=== PATIENT | female | born 1960 | race Caucasian/White ===

== ENCOUNTER 2019-11-20 08:06 | Outpatient (CLI) | payer OTHER, SELFPAY ==
--- NOTE | ~2019-11-20 | DEXA_ITS ---
BMD(1) Young-Adult(2) Age-Matched(3) Region (g/cm2) T-score Z-score WHO Classification L1 0.884 -2.1 -1.1 Osteopenia L2 0.921 -2.4 -1.4 Osteopenia L3 0.951 -2.1 -1.1 Osteopenia L4 0.967 -2.0 -1.0 Osteopenia L1-L4 0.936 -2.1 -1.1 Osteopenia Trend: L1-L4 Change vs Change vs Measured Age BMD(1) Baseline Previous Date (years) (g/cm2) (%) (%) 11/20/2019 58.9 0.936 1.8 1.8 12/20/2017 [age] 0.919 baseline - 1 - Statistically 68% of repeat scans fall within 1SD (+- 0.010 g/cm2 for AP Spine L1-L4) 2 - [place] (Combined NHANES (ages 20-30) / [employer] (ages 20-40)) AP Spine Reference Population (v112) 3 - Matched for Age, Weight (females 25-100 kg), Ethnic 11 - World Health Organization - Definition of Osteoporosis and Osteopenia for Women: Normal = T-score at or above -1.0 SD; Osteopenia = T-score between -1.0 and -2.5 SD; Osteoporosis = T-score at or below -2.5 SD; (WHO definitions only apply when a young healthy Women reference database is used to determine T-scores.) Printed: 11/20/2019 9:11:20 AM (13.60)76:3.00:50.00:12.0 0.00:10.32 0.60x1.05 21.5:%Fat=42.2% 0.00:0.00 0.00:0.00 Filename: [id number] Scan Mode: Standard;OneScan 37.0 W[employer] [id number] BMD(1) Young-Adult(2,7) Age-Matched(3) Region (g/cm2) T-score Z-score WHO Classification Neck Left 0.799 -1.7 -0.6 Osteopenia Right 0.767 -1.9 -0.8 Osteopenia Mean 0.783 -1.8 -0.7 Osteopenia Difference 0.032 -0.2 -0.2 - Total Left 0.882 -1.0 -0.2 Normal Right 0.861 -1.2 -0.4 Osteopenia Mean 0.872 -1.1 -0.3 Osteopenia Difference 0.021 -0.2 -0.2 - Hip [place] Length Comparison (mm) (Right = 104.3 mm) (Mean = 103.2 mm) (Left = 99.3 mm) Trend: Total Mean Change vs Change vs Measured Age BMD(1) Baseline Previous Date (years) (g/cm2) (%) (%) 11/20/2019 58.9 0.872 baseline - 1 - Statistically 68% of repeat scans fall within 1SD (+- 0.010 g/cm2 for DualFemur Total) 2 - [place] (Combined NHANES (ages 20-30) / [employer] (ages 20-40)) Femur Reference Population (v112) 3 - Matched for Age, Weight (females 25-100 kg), Ethnic 7 - [employer] Total T-score difference is 0.2. Asymmetry is None. 11 - World Health Organization - Definition of Osteoporosis and Osteopenia for Women: Normal = T-score at or above -1.0 SD; Osteopenia = T-score between -1.0 and -2.5 SD; Osteoporosis = T-score at or below -2.5 SD; (WHO definitions only apply when a young healthy Women reference database is used to determine T-scores.) Printed: 11/20/2019 9:11:20 AM (13.60); Filename: [id number]; Right Femur; 16.9:%Fat=32.4%; Neck Angle (deg)= 58; Scan Mode: Standard 37.0 uGy; Left Femur; 16.2:%Fat=33.1%; Neck Angle (deg)= 60; Scan Mode: Thin 9.0 uGy brick&mobile [id number] Dear Glenn Johnson, Your patient Lucy Faust completed a BMD test on 11/20/2019 using the brick&mobile DXA System (analysis version: 13.60) manufactured by [employer]. The following summarizes the results of our evaluation. PATIENT BIOGRAPHICAL: Name: Lucy Faust Date: 1960 Height: 62.0 in.
== END 2019-11-20 08:07 | disposition home or self-care (01) ==
PROVIDERS: PCP Internal Medicine; Visit Provider Internal Medicine
DX: M81.0 Age-related osteoporosis without current pathological fracture (principal)
CPT/HCPCS: 77080

== ENCOUNTER → 2020-09-22 10:19 | Outpatient (CLI) | payer OTHER, SELFPAY ==
--- NOTE | ~2020-09-22 | MM_ITS ---
EXAMINATION: MM screening kristina BI w steffany HISTORY: Screening mammogram TECHNIQUE: Craniocaudal and mediolateral oblique 3-D tomosynthesis images were obtained and synthetic 2-D images were generated. CAD analysis was submitted and interpreted. COMPARISON: 04/20/2019, 08/01/2017, 03/29/2016 lateral digital screening mammogram examinations BREAST PARENCHYMAL COMPOSITION: There are scattered areas of fibroglandular density. FINDINGS: A 4 mm and a 5 mm low-density circumscribed masses are noted in the mid and upper outer rig ht breast. A similar low-density circumscribed 3.8 mm mass is noted posteriorly in the mid outer righ t breast. There is a likely benign intramammary lymph nodes. These are stable since 03/29/2016 and 04/02. There is no evidence of suspicious mass, calcification, or architectural distortion to suggest malign jessica in either breast. There has been no suspicious interval change. IMPRESSION: 1. No mammographic evidence of malignancy. 2. Recommend routine screening mammography in one year. BI-RADS Category 2: Benign finding(s). Reviewed, dictated and finalized at location A. INUING EDUCATION INSTRUCTOR
== END ==
PROVIDERS: PCP Internal Medicine; Visit Provider Obstetrics & Gynecology
DX: Z12.31 Encounter for screening mammogram for malignant neoplasm of breast (principal)
CPT/HCPCS: 77063; 77067

== ENCOUNTER 2020-10-11 10:15 | Outpatient (CLI) | payer OTHER, SELFPAY ==
--- NOTE | ~2020-10-11 | CT_ITS ---
EXAMINATION: CT abdomen pelvis wo con DATE: 10/11/2020 10:55 INDICATION: Painful gross hematuria TECHNIQUE: Computed tomography (CT) of the abdomen and pelvis was performed without intravenous contr ast. The dose-length product (DLP) was 183.38 mGy-cm. Automated exposure control and iterative recons truction technique were employed. COMPARISON: PET CT, 03/25/2006 FINDINGS: Minimal dependent atelectasis is present in the lung bases. The heart size is normal. The g allbladder is surgically absent. There is mild enlargement of the common bile duct and central intrah epatic ducts which is likely due to post cholecystectomy state. The liver, spleen, pancreas, and adre nal glands are normal. There is complete atrophy of the right kidney. The left kidney is unremarkable . No stones are present in the left kidney, ureter or the bladder. There is no hydronephrosis or hydr oureter. No pathologically enlarged abdominal or pelvic lymph nodes are identified. There is no free intraperitoneal gas or evidence of bowel obstruction. There has been interval removal of the previous ly seen right pelvic mass, likely endometrial deposit given clinical history. An endoluminal stent is present in the right external iliac vein. A small bowel surgical anastomosis is noted in the pelvis. A tiny fat-containing umbilical hernia is noted. IMPRESSION: 1. No CT correlate for the patient's symptoms. 2. Complete atrophy of the right kidney. Reviewed, dictated and finalized at location A. R BEAM CUTTER
== END 2020-10-11 10:16 | disposition home or self-care (01) ==
PROVIDERS: PCP Internal Medicine; Visit Provider Internal Medicine
DX: R31.9 Hematuria, unspecified (principal)
CPT/HCPCS: 74176

== ENCOUNTER → 2021-10-17 10:45 | Outpatient (CLI) | payer OTHER, SELFPAY ==
--- NOTE | ~2021-10-17 | MM_ITS ---
EXAMINATION: MM screening kristina BI w steffany HISTORY: Screening TECHNIQUE: Craniocaudal and mediolateral oblique 3-D tomosynthesis images were obtained and synthetic 2-D images were generated. CAD analysis was submitted and interpreted. COMPARISON: 09/22/2020 BREAST PARENCHYMAL COMPOSITION: Breast composed of scattered areas of fibroglandular density FINDINGS: There is no evidence of suspicious mass, calcification, or architectural distortion to sugg est malignancy in either breast. There has been no suspicious interval change. IMPRESSION: 1. No mammographic evidence of malignancy. 2. Recommend routine screening mammography in one year. BI-RADS Category 1: Negative Reviewed, dictated and finalized at location A. HERMAL OPERATING ENGINEER
== END ==
PROVIDERS: PCP Internal Medicine; Visit Provider Obstetrics & Gynecology
DX: Z12.31 Encounter for screening mammogram for malignant neoplasm of breast (principal)
CPT/HCPCS: 77063; 77067

== ENCOUNTER 2021-12-20 09:40 | Outpatient (CLI) | payer OTHER, SELFPAY ==
--- NOTE | ~2021-12-20 | DEXA_ITS ---
Bone Density Report Name: CHARY SANON Age: 61 Sex: Female Ethnicity: White Date of : 1960 Indication: postmenopausal; screening for osteoporosis; height loss; hysterectomy; Referring Provider: Glenn Johnson Study: Bone densitometry was performed. Exam Date: December 20, 2021 Accession number: [id number] Bone Density: Region BMD T-score Z-score Classification AP Spine(L1-L4) 0.749 -2.7 -1.2 Osteoporosis Femoral Neck (Left) 0.617 -2.1 -0.8 Osteopenia Total Hip (Left) 0.821 -1.0 0.0 Normal Femoral Neck (Right) 0.617 -2.1 -0.8 Osteopenia Total Hip (Right) 0.774 -1.4 -0.4 Osteopenia Femoral Neck Mean 0.617 -2.1 -0.8 Osteopenia Total Hip Mean 0.798 -1.2 -0.2 Osteopenia World Health Organization criteria for BMD impression classify patients as: Normal (T-score at or above -1.0), Osteopenia (T-score between -1.0 and -2.5), or Osteoporosis (T-score at or below -2.5). 10-year Fracture Risk: FRAX not reported because: Some T-score for Spine Total or Hip Total or Femoral Neck at or below -2.5 Treated for osteoporosis Clinical Information Provided by Patient: Is being treated for osteoporosis Has used the following medications: Actonel (i.e. risedronate), Forteo (i.e. parathyroid hormone), Prolia (i.e. denosumab), Vitamin D, Calcium Has the following medical conditions: Hysterectomy Patient maximum height was 64 Menopause Age: 37 Drinks caffeinated beverages Onset of menses at age 15 Number of children 2 Impression: The patient has osteoporosis, based on the Total Spine T-score. Discussion: It is important to ask patients whether they are taking their medications and to encourage continued and appropriate compliance with their osteoporosis therapies to reduce fracture risk. It is also important to review their risk factors and encourage appropriate calcium and vitamin D intakes, exercise, fall prevention and other lifestyle measures. Follow-Up: Consider a repeat BMD and Vertebral Fracture Assessment (VFA) exam in 2 years or sooner if medically necessary, to reassess this patient's status. Reported by: Dr. Hamlet Moss on 12/20/2021 10:05:00 AM. Reviewed, dictated and finalized at location A. [facility]
== END 2021-12-20 09:41 | disposition home or self-care (01) ==
PROVIDERS: PCP Internal Medicine; Visit Provider Internal Medicine
DX: M81.0 Age-related osteoporosis without current pathological fracture (principal)
CPT/HCPCS: 77080

== ENCOUNTER → 2023-01-24 14:27 | Outpatient (CLI) | payer OTHER, SELFPAY ==
--- NOTE | ~2023-01-24 | MM_ITS ---
EXAMINATION: MM screening kristina BI w steffany HISTORY: Screening mammogram, family history of breast cancer in her sister. TECHNIQUE: Craniocaudal and mediolateral oblique 3-D tomosynthesis images were obtained and synthetic 2-D images were generated. CAD analysis was submitted and interpreted. COMPARISON: 10/17/2021, 09/22/2020, 04/10/2019 BREAST PARENCHYMAL COMPOSITION: There are scattered areas of fibroglandular density. FINDINGS: No suspicious mass, calcification, or architectural distortion are identified in either isa ast to suggest malignancy. There has been no suspicious interval change. IMPRESSION: 1. No mammographic evidence of malignancy. 2. Recommend routine screening mammography in one year. BI-RADS Category 1: Negative Reviewed, dictated and finalized at location A.
== END ==
PROVIDERS: PCP Internal Medicine; Visit Provider Obstetrics & Gynecology
DX: Z12.31 Encounter for screening mammogram for malignant neoplasm of breast (principal)
CPT/HCPCS: 77063; 77067

== ENCOUNTER 2024-02-20 14:48 | Outpatient (CLI) | payer OTHER, SELFPAY ==
--- NOTE | ~2024-02-20 | MM_ITS ---
EXAMINATION: MM screening kristina BI w steffany HISTORY: Screening TECHNIQUE: Craniocaudal and mediolateral oblique 3-D tomosynthesis images were obtained and synthetic 2-D images were generated. CAD analysis was submitted and interpreted. COMPARISON: Comparison to multiple prior studies sequentially, with oldest reviewed study dated 03/29. BREAST PARENCHYMAL COMPOSITION: Not dense: There are scattered areas of fibroglandular density. FINDINGS: There is no evidence of suspicious mass, calcification, or architectural distortion to sugg est malignancy in either breast. There has been no suspicious interval change. IMPRESSION: 1. No mammographic evidence of malignancy. 2. Recommend routine screening mammography in one year. BI-RADS Category 1: Negative Reviewed, dictated and finalized at location B.
== END 2024-02-20 14:49 ==
PROVIDERS: PCP Internal Medicine; Visit Provider Obstetrics & Gynecology
DX: Z12.31 Encounter for screening mammogram for malignant neoplasm of breast (principal)
CPT/HCPCS: 77063; 77067

== ENCOUNTER 2024-10-22 14:12 | Outpatient (CLI) | payer OTHER, SELFPAY ==
--- NOTE | ~2024-10-22 | DEXA_ITS ---
Bone Density Report Name: CHARY SANON Age: 63 Sex: Female Ethnicity: White Date of : 1960 Indication: postmenopausal osteoporosis; monitoring treatment; height loss; hysterectomy; Referring Provider: Glenn Johnson Study: Bone densitometry was performed. Exam Date: October 22, 2024 Accession number: [id number] Bone Density: Region BMD T-score Z-score Classification AP Spine(L1-L4) 0.729 -2.9 -1.2 Osteoporosis Femoral Neck (Left) 0.612 -2.1 -0.7 Osteopenia Total Hip (Left) 0.893 -0.4 0.8 Normal Femoral Neck (Right) 0.606 -2.2 -0.7 Osteopenia Total Hip (Right) 0.863 -0.6 0.5 Normal Femoral Neck Mean 0.609 -2.2 -0.7 Osteopenia Total Hip Mean 0.878 -0.5 0.6 Normal World Health Organization criteria for BMD impression classify patients as: Normal (T-score at or above -1.0), Osteopenia (T-score between -1.0 and -2.5), or Osteoporosis (T-score at or below -2.5). 10-year Fracture Risk: FRAX not reported because: Some T-score for Spine Total or Hip Total or Femoral Neck at or below -2.5 Treated for osteoporosis Previous Exams: Region Exam Age BMD T-score BMD Change BMD Change Date g/cm2 vs Baseline vs Previous AP Spine (L1-L4) 10/22/2024 63 0.729 -2.9 -0.077 (-9.5%) -0.020 (-2.7%) 12/20/2021 61 0.749 -2.7 -0.057 (-7.0%) -0.071 (-8.7%) 11/20/2019 58 0.821 -2.1 0.015 (1.8%) 0.015 (1.9%) 12/20/2017 57 0.806 -2.2 Total Hip(Left) 10/22/2024 63 0.893 -0.4 0.089 (11.1%)# 0.071 (8.7%)* 12/20/2021 61 0.821 -1.0 0.018 (2.3%)# 0.002 (0.2%)# 11/20/2019 58 0.820 -1.0 0.016 (2.0%) 0.016 (2.0%) 12/20/2017 57 0.803 -1.1 Total Hip(Right) 10/22/2024 63 0.863 -0.6 0.064 (8.1%)# 0.089 (11.5%)* 12/20/2021 61 0.774 -1.4 -0.025 (-3.1%) -0.025 (-3.1%) 11/20/2019 58 0.799 -1.2 *Denotes significance at 95% confidence level, LSC for AP Spine = 0.022 g/cm2, LSC for Total Hip = 0.027 g/cm2 # Denotes dissimilar scan types or analysis methods Clinical Information Provided by Patient: Is being treated for osteoporosis Has used the following medications: Actonel (i.e. risedronate), Forteo (i.e. parathyroid hormone), Prolia (i.e. denosumab), Vitamin D, Calcium Has the following medical conditions: Hysterectomy Patient maximum height was 64 Menopause Age: 37 Drinks caffeinated beverages Number of children 2 Impression: The patient has osteoporosis, based on the Total Spine T-score. No significant bone loss was observed. Discussion: PATIENT UNDER TREATMENT WITH NO SIGNIFICANT BMD LOSS SINCE LAST EXAM. In an untreated patient, BMD typically declines with age. A lack of decline or gain is usually a sign that treatment is efficacious and fracture risk is reduced. It is important to ask patients whether they are taking their medications and to encourage continued and appropriate compliance with their osteoporosis therapies to reduce fracture risk. It is also important to review their risk factors and encourage appropriate calcium and vitamin D intakes, exercise, fall prevention and other lifestyle measures. Follow-Up: Consider a repeat BMD and Vertebral Fracture Assessment (VFA) exam in 2 years or sooner if medically necessary, to reassess this patient's status. Reported by: MICH on 10/23/2024 1:51:00 PM. Reviewed, dictated and finalized at location A.
--- OUTSIDE RECORDS SUMMARY | 2024-10-22 14:19 | XMS_ITS | Clinical Summary ---
Author Organization [facility] Address [address] [address] Phone Care Team Providers Care Garden Center Manager Name Role Phone Glenn Johnson MD Primary Care Provider [phone] Allergies No known active allergies Medications atorvastatin (LIPITOR) 20 MG Tablet Take 20 mg by mouth daily. 1 Active Imvexxy Maintenance Pack 4 MCG INSERT INSERT 1 tablet VAGINALLY TWICE A WEEK 1 Active losartan (COZAAR) 50 MG Tablet Take 50 mg by mouth daily. 1 Active Cyanocobalamin (VITAMIN B 12 PO) Take by mouth daily. Active BABY ASPIRIN PO Take 81 mg by mouth daily. Active Calcium Carbonate (CALCIUM 500 PO) Take by mouth daily. Active ergocalciferol (VITAMIN D) 67855 UNIT Capsule Take 1.25 mg by mouth every 30 days. Active FIBER PO Take by mouth daily. Active Multiple Vitamins-Mineral s (HAIR SKIN AND NAILS FORMULA PO) Take by mouth daily. Active Active Problems Problem Noted Date Diagnosed Date Frozen shoulder 01/23/2021 Immunizations Immunization Administration Dates Next Due Covid-19, Mrna, Lnp-s, Pf, 30 Mcg/0.3 Ml Dose (Bronwyn molina) 2020,11/05/2020 Influenza Vaccine, Quadrivalent, PF 06/17/2020,1 Influenza, Injectable, Quadrivalent 06/13/2018 Family History Medical History Relation Name Comments Bladder cancer Father Cancer Father Heart Disease Father Stroke Maternal Grandfather Cancer Sister Hodkins Relation Name Status Comments Father Maternal Grandfather Sister Social History Tobacco Use Types Packs/Day Years Used Date Smoking Tobacco: Never Smokeless Tobacco: Never Tobacco Cessation:Counseling Given: No Alcohol Use Standard Drinks/Week Comments Not Currently 0 (1 standard drink = 0.6 oz pur e alcohol) Sexually Active Control Partners Comments Yes Comments No Sex and Gender Information Value Date Recorded Sex Assigned at Not on file Legal Sex Female 11:58 PM CDT Gender Identity Not on file Sexual Orientation Not on file Last Filed Vital Signs Vital Sign Reading Time Taken Comments Blood Pressure 108/77 06/02/2021 9:24 AM CDT Pulse 72 06/02/2021 9:24 AM CDT Temperature 37 C (98.6 F) 06/02/2021 9:24 AM CDT Respiratory Rate 15 06/02/2021 9:24 AM CDT Oxygen Saturation 100% 06/02/2021 9:24 AM CDT Inhaled Oxygen Concentration - - Weight 69.9 kg (154 lb) 05/05/2021 1:00 PM CDT Height 157.5 cm (5' 2 ) 05/05/2021 1:00 PM CDT Body Mass Index 28.17 05/05/2021 1:00 PM CDT Plan of Treatment Health Maintenance Due Date Last Done Comments Hepatitis C Virus (HCV) Screening 1960 TdaP Immunization 1960 Cologuard 2010 Immunochemical Fecal Occult Blood 2010 Mammogram 2010 Pneumococcal Immunization (5 0+ years) (1 of 1 - PCV) 2010 Zoster Immunization (1 of 2) 2010 Influenza Immunization (#1) 05/03/202406/02, 06/12/2019, 06/13/2018 SARS-COV-2 Immunization ( season) 2024 08/08/2021, 2020, 11/05/2020 Colonoscopy 06/02/2024 06/02/2021 Colorectal Cancer Screening 06/02/2024 Respiratory Syncytial Virus (RSV) Immunization (Adult) (1 - 1-dose 75+ series) 12/02/2035 06/02/2021 Hepatitis B Immunization Aged Out No longer eligible based on patient's age to complete this topic Meningococcal Immunization (ACWY) Aged Out No longer eligible b ased on patient's age to complete this topic Pneumococcal Immunization Combined Aged Out No longer eligible b ased on patient's age to complete this topic Rotavirus Immunization Aged Out No lo nger eligible based on patient's age to complete this topic Insurance [employer] Care Teams Garden Center Manager Relationship Specialty Start Date End Date Glenn Johnson MD [address] [place] [address] PCP - General Internal Medicine 02/17/21
--- OUTSIDE RECORDS SUMMARY | 2024-10-22 14:19 | XMS_ITS | Referral Summary ---
Author Organization [facility] Address [address] [place] [address] Care Team Providers Care Adjunct Philosophy Faculty Name Role Phone Glenn Johnson MD Unavailable [phone] Glenn Johnson MD Primary Care Provider [phone] Allergies Active Allergy Reactions Criticality Noted Date Comments Iodinated Contrast Media Swelling,Rash,F lushing (skin) Medium Medications denosumab (PROLIA) 60 mg/mL syringeIndication s:postmenopausal osteoporosis and high fracture risk Inject 1 mL (60 mg total) under the skin every 6 (six) months Active ergocalciferol (VITAMIN D) 50,000 unit capsuleIndication s:Vitamin D Deficiency Take 1 capsule (50,000 Units total) by mouth every 30 (thirty) days Active atorvastatin (LIPITOR) 20 mg tabletIndications :hyperlipidemia Take 1 tablet (20 mg total) by mouth nightly Active losartan (COZAAR) 50 mg tabletIndications :hypertension Take 1 tablet (50 mg total) by mouth nightly Active famotidine (PEPCID) 20 mg tabletIndications :gastroesophageal reflux disease Take 1 tablet (20 mg total) by mouth 2 (two) times a day Active HAIR, SKIN AND NAILS, BIOTIN, ORALIndications:s upplement Take 1 tablet by mouth nightly Active aspirin 81 mg enteric coated tabletIndications :iliac stent Take 1 tablet (81 mg total) by mouth nightly Active calcium carb/vit D3/minerals (CALCIUM-VITAMIN D ORAL)Indications: supplement Take 500 mg by mouth 2 (two) times a day Active estradioL (Imvexxy Maintenance Pack) 4 mcg insert vaginal insertIndications :hormone replacement Insert 4 mcg into the vagina 2 (two) times a week 4 Active cyanocobalamin (Vitamin B-12) 1,000 mcg tabletIndications :Prevention of Vitamin B12 Deficiency Take 1 tablet (1,000 mcg total) by mouth nightly Active Hospital, Clinic, or Other Facility Administered Medication Ordered Dose Route Frequency Start Date End Date Status onabotulinumtoxin A (BOTOX) injection 100 UnitsIndications:Cer vical dystonia 100 Units IM Once for Clinic-Administer ed Medication 04/01/2024 03/31/2025 Active Active Problems Problem Noted Date Diagnosed Date Cervical dystonia 11/27/2023 Assessment & Plan (11/27/2023 8:06 PM CDT): She has involuntary movements of her neck that may represent cervical dystonia. This is not my area of expertise and I do not perform neck botulinum toxin injections so I would like her to see a colleague of mine for further evaluation and treatment as appropriate. Dermatochalasis of both upper eyelids 11/25/2023 Ptosis of both eyelids 11/25/2023 Frozen shoulder 01/23/2021 Vitamin D deficiency disease 02/08/2014 Osteoporosis 02/20/2011 Immunizations Immunization Administration Dates Next Due Influenza, Quadrivalent, Fallon l Culture-based MDCK, Preservative Free, Antibiotic Free, Intramuscular 06/19/2022 Influenza, Quadrivalent, Split, Intramuscular Influenza, Quadrivalent, Spl it, Preservative Free, Intramuscular 06/17/2020,06/12/2019 Social History Tobacco Use Types Packs/Day Years Used Date Smoking Tobacco: Never Passive Smoke Exposure: Never Smokeless Tobacco: Never Tobacco Cessation:Counseling Given: Not Answered AUDIT-C Answer Date Recorded Q1: How often do you have a drink containing alcohol? Never 12/25/2023 Q2: How many drinks containi ng alcohol do you have on a typical day when you are drinking? Patient does not drink Q3: How often do you have si x or more drinks on one occasion? Never 12/25/2023 Personal Safety Answer Date Recorded Have you ever been in or are you currently in a harmful physical or emotional relationship or is someone making you feel afraid or unsafe? 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 Not on fi le Not on file Not on file Last Filed Vital Signs Vital Sign Reading Time Taken Comments Blood Pressure 120/85 05/27/2024 9:17 AM CDT Pulse 103 05/27/2024 9:17 AM CDT Temperature 36.1 C (96.9 F) 05/27/2024 9:17 AM CDT Respiratory Rate 17 01/07/2024 9:30 AM CDT Oxygen Saturation 100% 01/07/2024 9:30 AM CDT Inhaled Oxygen Concentration - - Weight 71.2 kg (157 lb) 05/27/2024 9:17 AM CDT Height 157.5 cm (5' 2 ) 05/27/2024 9:17 AM CDT Body Mass Index 28.72 05/27/2024 9:17 AM CDT Plan of Treatment Not on file Medical Devices Implanted Type Area Superintendent Terminal Device Identifier Shelf Expiration Date Model / Serial / Lot Stent Stent Iliac Description:x1 Insurance [facility] CIG[employer] Advance Directives For more information, please contact: [phone] Documents on File Type Date Recorded Patient Time Study Statistician Expl anation ADVANCE DIRECTIVE 01/09/2024 11:15 PM POWER OF CULLET CRUSHER-MEDICAL ADVANCE DIRECTIVE 01/07/2024 9:14 AM Power of Human Resources Officer-Financial/Medical Care Teams Adjunct Philosophy Faculty Relationship Specialty Start Date End Date Glenn Johnson MD [address] [place] [address] PCP - General Internal Medicine 10/09/23 Glenn Johnson MD [address] [place] [address] Referring Physician Internal Medicine 06/28/22
--- OUTSIDE RECORDS SUMMARY | 2024-10-22 14:19 | XMS_ITS | Encounter Summary ---
Author Organization [facility] Address [address] [place] [address] Phone Care Team Providers Care Hogshead Hooper Name Role Phone Torito Sandra MD Primary Care Provider + [phone] Glenn Johnson MD Unavailable [phone] Glenn Johnson MD Primary Care Provider [phone] Encounter Details Date Type Department Care Team (Late st Contact Info) Description 03/20/[address] [place] [address] Joseph Seth MD [address] [address] Social History Tobacco Use Types Packs/Day Years Used Date Smoking Tobacco: Never Smokeless Tobacco: Never Comments Unknown Sex and Gender Information Value Date Recorded Sex Assigned at Not on file Legal Sex Female 1:26 AM 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 SIGN 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
--- OUTSIDE RECORDS SUMMARY | 2024-10-22 14:19 | XMS_ITS | Clinical Summary ---
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 Gender Identity Not on file Sexual Orientation Not on file Last Filed Vital Signs Vital Sign Reading Time Taken Comments Blood Pressure 117/97 03/27/2017 11:19 AM CDT Pulse 84 03/27/2017 11:19 AM CDT Temperature - - Respiratory Rate - - Oxygen Saturation - - Inhaled Oxygen Concentration - - Weight 70.8 kg (156 lb) 03/27/2017 11:19 AM CDT Height 160 cm (5' 3 ) 03/27/2017 11:19 AM CDT Body Mass Index 27.63 03/27/2017 11:19 AM CDT Plan of Treatment Health Maintenance Due Date Last Done Comments Cervical Cancer Screening Pa p Smear (Age 30 to 64) Every 3 Years 1960 Colorectal Cancer Screening Colonoscopy (10 Years) 1960 Annual Physical 12/02/1963 Hepatitis C 1978 DTaP, Tdap and Td Vaccines ( 1 - Tdap) 12/02/1979 Cervical Cancer Screening Pa p with HPV Testing (Age 30 to 64) Every 5 Years 1990 Cervical Cancer Screening wi th HPV 1990 Mammogram Screening 2000 Zoster Vaccines (1 of 2) 2010 COVID-19 Vaccine (3 2023-2 5 season) 2024 2020, 11/05/2020 Influenza Adult (#1) 2024 07/21/2014 RSV Immunization or 60+ Years (1 - 1-dose 75+ series) 12/02/2035 Meningococcal B Vaccine Aged Out No l onger eligible based on patient's age to complete this topic Meningococcal Vaccine Aged Out No geovanni sean eligible based on patient's age to complete this topic Pneumococcal Vaccine: Pediatrics (0 to 5 Years) and At-Risk Patients (6 to 64 Years) Aged Out No longer eligible b ased on patient's age to complete this topic RSV Immunizations Under 20 Months Aged Out No longer eligible b ased on patient's age to complete this topic Insurance CIG Care Teams Pathology Laboratory Aide Relationship Specialty Start Date End Date Glenn Johnson MD [address] [place] [id number] PCP - General INTERNAL MEDICINE 02/16/21
--- OUTSIDE RECORDS SUMMARY | 2024-10-22 14:19 | XMS_ITS | Clinical Summary ---
Author Organization [facility] Address [address] [place] [address] Care Team Providers Care Supervisor [facility] Name Role Phone Glenn Johnson MD Unavailable [phone] Glenn Johnson MD Primary Care Provider [phone] Allergies Active Allergy Reactions Criticality Noted Date [...] the vagina 2 (two) times a week Active cyanocobalamin (Vitamin B-12) 1,000 mcg tabletIndications [...] Quadrivalent, Spl it, Preservative Free, Intramuscular 06/17/2020,06/12/2019 Surgical History Surgery Date Site/Laterality Comments HYSTERECTOMY 09/02/1996 - 09/01/1997 COLON SURGERY 09/02/2005 - 09/01/2006 resection CHOLECYSTECTOMY 09/02/2006 - 09/01/2007 LAPAROTOMY 09/02/1991 - 09/01/1992 for ectopic COLONOSCOPY 06/02/2021 BLEPHAROPLASTY 01/07/2024 Bilateral BLEPHAROPLASTY UPPER EYELID (Bilateral: Eye) REPAIR PTOSIS (Bilateral: Eye) Medical History Medical History Date Comments High blood pressure H/O: hysterectomy Vertigo PONV (postoperative nausea and vomiting) with iliac stent placement under local (patient was awake) Family History Medical History Relation Name Comments Cancer Father heart disease Diabetes Father heart disease Cataracts Mother Diabetes Paternal Grandfather Diabetes Paternal Grandmother Cancer Sister Anesthesia problems Neg Hx Broken bones Neg Hx Dystonia Neg Hx Hip fracture Neg Hx Kyphosis Neg Hx Osteoporosis Neg Hx Scoliosis Neg Hx Tremor Neg Hx Relation Name Status Comments Father heart disease Mother Paternal Grandfather Paternal Grandmother Sister Social History Tobacco Use Types Packs/Day [...] on file Legal Sex 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 Gender Identity Not on file Sexual Orientation Not on file Occupation Industry Job Start Date Job End Date 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[employer], 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 Not on fi le Not on file Not on file Obstetrics History Last Filed Vital Signs Vital Sign Reading [...] 05/27/2024 9:17 AM CDT Plan of Treatment Health Maintenance Due Date Last Done Comments Breast Cancer Screening-Mammogram 1960 Colon Cancer Screening-Colonoscopy 1960 Hepatitis C Screening 1960 DTaP/Tdap/Td Vaccine (1 - Tdap) 12/02/1971 Hepatitis B Screening 1978 Regular Well Visit/Exam 18-64 1978 Zoster Vaccine (1 of 2) 2010 Covid-19 Vaccine ( season) 2024 06/19/2022, 08/08/2021, 2020, Additional history exists Influenza Vaccine (#1) 2024 , 06/17/2020, 06/12/2019, Additional history exists Depression Screening 11/26/2024 11/27/2023 Pneumococcal vaccine <65 Aged Out No longer eligible based on patient's age to complete this topic Medical Devices Implanted Type Area Mri Special Procedures Technologist Device Identifier Shelf Expiration Date Model / Serial / Lot Stent Stent Iliac Description:x1 Insurance [email or web address] Advance Directives For more information, please contact: [phone] Documents on File Type Date Recorded Patient Family Assistant Expl anation ADVANCE DIRECTIVE 01/09/2024 11:15 PM POWER OF FRANKFURTER INSPECTOR-MEDICAL ADVANCE DIRECTIVE 01/07/2024 9:14 AM Power of Assistant Commissioner-Financial/Medical Care Teams Supervisor [facility] Relationship Specialty Start Date End Date Glenn Johnson MD [address] [place] [address] PCP - General Internal Medicine 10/09/23 Glenn Johnson MD [address] [place] [address] Referring Physician Internal Medicine 06/28/22
== END 2024-10-22 14:13 | disposition home or self-care (01) ==
LOC: CHSIMG 14:14
PROVIDERS: PCP Internal Medicine; Visit Provider Internal Medicine
DX: M81.0 Age-related osteoporosis without current pathological fracture (principal); M85.89 Other specified disorders of bone density and structure, multiple sites
CPT/HCPCS: 77080

== ENCOUNTER 2025-02-22 11:03 | Outpatient (CLI) | payer OTHER, SELFPAY ==
--- NOTE | ~2025-02-22 | MM_ITS ---
EXAMINATION: MM screening kristina BI w steffany HISTORY: Screening mammogram, family history of breast cancer in her sister. TECHNIQUE: Craniocaudal and mediolateral oblique 3-D tomosynthesis images were obtained and synthetic 2-D images were generated. CAD analysis was submitted and interpreted. COMPARISON: 02/20/2024, 01/24/2023, 10/17/2021 BREAST PARENCHYMAL COMPOSITION:Not Dense. There are scattered areas of fibroglandular density. FINDINGS: No suspicious mass, calcification, or architectural distortion are identified in either isa ast to suggest malignancy. There has been no suspicious interval change. IMPRESSION: No mammographic evidence of malignancy. Recommend routine screening mammography in one year. BI-RADS Category 1: Negative Reviewed, dictated and finalized at location .
== END 2025-02-22 11:04 | disposition home or self-care (01) ==
LOC: MICIMG 11:04
PROVIDERS: PCP Internal Medicine; Visit Provider Obstetrics & Gynecology
DX: Z12.31 Encounter for screening mammogram for malignant neoplasm of breast (principal)
CPT/HCPCS: 77063; 77067

== ENCOUNTER 2025-08-05 08:20 | Outpatient (CLI) | payer OTHER, SELFPAY ==
--- NOTE | ~2025-08-05 | MR_ITS ---
EXAMINATION: MR shoulder LT wo con DATE: 08/05/2025 12:02 INDICATION: Left shoulder injury TECHNIQUE: Magnetic resonance imaging (MRI) of the left shoulder was performed without intravenous contrast. Sequences included axial PD-weighted FS FSE, coronal oblique PD-weighted FS FSE, coronal oblique T2-weighted FS FSE, sagittal PD-weighted FS FSE, and sagittal T1-weighted SE. COMPARISON: None. FINDINGS: Coracoacromial arch: The acromion undersurface is flat in morphology (type I). The coracoacromial ligament is normal. Moderate acromioclavicular osteoarthritis. Rotator cuff: Mild supraspinatus tendinopathy without tear. The infraspinatus and teres minor tendons are normal. The subscapularis tendon is normal. Normal rotator cuff muscle bulk and signal. Biceps tendon, glenoid labrum and glenohumeral cartilage: Long head of the biceps tendon is normal. There is a small superior, anterior to posterior tear of the glenoid labrum (SLAP tear) extending from the 12:00-11:00 position of the posterior superior glenoid labrum. Glenohumeral cartilage is normal. Fluid: Physiologic amount of fluid in the glenohumeral joint and biceps tendon sheath. No loose osteochondral bodies. Mild increased fluid signal in the subacromial/subdeltoid bursa consistent with mild bursitis. Bones: Normal marrow signal with no edema, fracture or abnormal marrow replacing process. IMPRESSION: 1. Small SLAP tear at the posterior superior glenoid labrum. 2. Mild tendinopathy without tear of the distal supraspinatus tendon with overlying mild subacromial/subdeltoid bursitis. 3. Moderate acromioclavicular osteoarthritis. Reviewed, dictated and finalized at location A. ICAL ASSOCIATE IMPRESSION: 1. Small SLAP tear at the posterior superior glenoid labrum. 2. Mild tendinopathy without tear of the distal supraspinatus tendon with overl vlad mild subacromial/subdeltoid bursitis. 3. Moderate acromioclavicular osteoarthritis.
== END 2025-08-05 08:21 | disposition home or self-care (01) ==
LOC: MICIMG 08:21
PROVIDERS: PCP Internal Medicine; Visit Provider Nurse Practitioner Family
DX: S49.92XA Unspecified injury of left shoulder and upper arm, initial encounter (principal); X58.XXXA Exposure to other specified factors, initial encounter; M19.012 Primary osteoarthritis, left shoulder
CPT/HCPCS: 73221